=== PATIENT | female | born 1985 | race Caucasian/White ===

== ENCOUNTER 2017-03-09 05:42 | Inpatient (IN) | payer OTHER ==
[~2017-03-09] VITALS: Ht 154.9 cm; Wt 95.3 kg
[2017-03-09] MEDS ORDERED: LACTATED RINGERS 1,000 ML IV SCH (06:14)
[2017-03-09 06:34] LABS: BASOPHILS # (AUTO) 0.1 K/uL (0.00-0.22); BASOPHILS % (AUTO) 0.7 % (0.0-2.0); EOSINOPHILS # (AUTO) 0.1 K/uL (0-0.4); HEMATOCRIT 36.7 % (36-48); HEMOGLOBIN 12.4 g/dL (12.0-16.0); LYMPHOCYTES # (AUTO) 1.7 K/uL (2.5-16.5); LYMPHOCYTES % (AUTO) 19.9 % (20.5-51.1); MEAN CORPUSCULAR HEMOGLOBIN 31 pg (27-31); MEAN CORPUSCULAR HGB CONC 34 g/dL (33-37); MEAN CORPUSCULAR VOLUME 90 fL (80-94); MONOCYTES # (AUTO) 0.5 K/uL (0.8-1.0); MONOCYTES % (AUTO) 5.5 % (1.7-9.3); NEUTROPHILS # (AUTO) 6.2 K/uL (1.8-7.7); NEUTROPHILS % (AUTO) 72.9 % (42.2-75.2); PLATELET COUNT (AUTO) 163 K/uL (140-450); RED BLOOD CELL COUNT(AUTO) 4.07 MIL/uL (4.20-5.40); RED CELL DISTRIBUTION WIDTH 12.4 % (11.6-13.7); WHITE BLOOD COUNT (AUTO) 8.6 K/uL (4.8-10.8)
[2017-03-09] MEDS ORDERED: PREN-546 PO (07:17)
[2017-03-09 07:19] VITALS: BP 113/69
[2017-03-09] MEDS ORDERED: HYDROcodone/APAP 5/325 MG 1 TAB TAB PO PRN (07:20)
[2017-03-09] MEDS ORDERED: MEASLES, MUMPS, AND RUBELLA 1 VIAL SQVAC PRN (07:20)
[2017-03-09] MEDS ORDERED: TEMAZEPAM 15 MG CAP PO PRN (07:20)
[2017-03-09] MEDS ORDERED: METHYLERGONOVINE 0.2 MG/ML AMP IM PRN (07:20)
[2017-03-09] MEDS ORDERED: TRIMETHOBENZAMIDE 200 MG/2 ML SYR IM PRN (07:20)
[2017-03-09] MEDS ORDERED: IBUPROFEN 800 MG TAB PO PRN (07:20)
[2017-03-09 07:21] LABS: PROTHROMBIN TIME 9.5 secs (10.8-13.4)
[2017-03-09 07:22] LABS: ALBUMIN 2.8 g/dL (3.4-5.0); ANION GAP 10.5 (8-16); CARBON DIOXIDE 25.3 mmol/L (21-32); CREATININE 0.7 mg/dL (0.6-1.3); POTASSIUM 3.8 mmol/L (3.5-5.1); TOTAL BILIRUBIN 0.3 mg/dL (0.0-1.0)
[2017-03-09 08:05] LABS: APPEARANCE,URINE CLEAR (CLEAR); BILIRUBIN,URINE NEGATIVE (NEGATIVE); BLOOD, URINE NEGATIVE (NEGATIVE); COLOR,URINE YELLOW (YELLOW); LEUKOCYTE ESTERASE ,URINE NEGATIVE (NEGATIVE); NITRITE, URINE NEGATIVE (NEGATIVE); UGLUCOSE NEGATIVE (NEGATIVE)
[2017-03-09] MEDS ORDERED: BUPIVACAINE-MPF 0.75% 10 ML VIAL INJ ONE (08:25)
[2017-03-09] MEDS ORDERED: OXYTOCIN 10 UNITS/ML VIAL ONE ×2 (08:28→20:31)
[2017-03-09] MEDS ORDERED: MIDAZOLAM 2 MG/2 ML VIAL ONE (08:29)
[2017-03-09] MEDS ORDERED: MORPHINE PRES FREE 10 MG/10 ML AMP IV ONE (08:30)
[2017-03-09] MEDS ORDERED: OXYTOCIN 20 UNITS in LACTATED RINGERS 1,000 ML IV SCH (09:01)
--- NOTE | 2017-03-09 09:04 | NUR ---
PATIENT HAS BEEN SCREENED AND CATEGORIZED LOW NUTRITION RISK. PATIENT WILL BE SEEN WITHIN 7 DAYS OF ADMISSION. 03/15/[address]
[2017-03-09] MEDS ORDERED: NALBUPHINE 10 MG/ML AMP IVP PRN (09:05)
[2017-03-09] MEDS ORDERED: ONDANSETRON 4 MG/2 ML VIAL IVP PRN ×2 (09:05)
[2017-03-09] MEDS ORDERED: diphenhydrAMINE 50 MG/ML VIAL IVP PRN (09:05)
[2017-03-09] MEDS ORDERED: MEPERIDINE 25 MG/ML SYR IVP PRN (09:05)
[2017-03-09] MEDS ORDERED: NALOXONE 0.4 MG/ML VIAL IVP PRN ×3 (09:05)
[2017-03-09] MEDS ORDERED: HYDROmorphone 1 MG/ML AMP IVP PRN (09:05)
[2017-03-09] MEDS: diphenhydrAMINE 50 MG/ML VIAL IVP PRN ×2 (09:26→23:13)
[2017-03-09] MEDS ORDERED: OXYTOCIN 20 UNITS/LR PREMIX 1,000 ML IV ONE (09:30)
[2017-03-09] MEDS ORDERED: diphenhydrAMINE 50 MG/ML VIAL ONE (09:30)
[2017-03-09] MEDS ORDERED: ONDANSETRON 4 MG/2 ML VIAL ONE (09:37)
[2017-03-09] MEDS: OXYTOCIN 20 UNITS in LACTATED RINGERS 1,000 ML IV SCH ×2 (11:59→21:30)
[2017-03-09] MEDS ORDERED: KETOROLAC 30 MG/ML VIAL IM/IVP SCH (12:00)
[2017-03-09] MEDS ORDERED: DOCUSATE SOD/SENNA 50/8.6 MG 1 TAB PO SCH (21:00)
[2017-03-10] MEDS ORDERED: OXYTOCIN 10 UNITS/ML VIAL ONE (06:23)
[2017-03-10 06:47] LABS: BASOPHILS % (AUTO) 0.4 % (0.0-2.0); EOSINOPHILS # (AUTO) 0.1 K/uL (0-0.4); EOSINOPHILS % (AUTO) 0.8 % (0.0-4.0); HEMATOCRIT 33.4 % (36-48); HEMOGLOBIN 11.7 g/dL (12.0-16.0); LYMPHOCYTES # (AUTO) 1.2 K/uL (2.5-16.5); LYMPHOCYTES % (AUTO) 10.1 % (20.5-51.1); MEAN CORPUSCULAR HEMOGLOBIN 32 pg (27-31); MEAN CORPUSCULAR HGB CONC 35 g/dL (33-37); MEAN CORPUSCULAR VOLUME 90 fL (80-94); MONOCYTES # (AUTO) 0.6 K/uL (0.8-1.0); MONOCYTES % (AUTO) 4.6 % (1.7-9.3); NEUTROPHILS # (AUTO) 10.3 K/uL (1.8-7.7); NEUTROPHILS % (AUTO) 84.1 % (42.2-75.2); PLATELET COUNT (AUTO) 144 K/uL (140-450); RED CELL DISTRIBUTION WIDTH 12.6 % (11.6-13.7); WHITE BLOOD COUNT (AUTO) 12.2 K/uL (4.8-10.8)
[2017-03-10] MEDS: SIMETHICONE 80 MG TAB.CHEW PO PRN ×3 (10:12→22:39)
[2017-03-10] MEDS: oxyCODONE/APAP 5/325 MG 1 TAB TAB PO PRN ×2 (10:16→22:38)
[2017-03-11] MEDS ORDERED: SODIUM PHOSPHATE 118 ML ENEM RC PRN (09:05)
[2017-03-11] MEDS ORDERED: IBUP-2217 PO (10:09)
== END 2017-03-11 15:00 | disposition home or self-care (01) | DRG 540 ==
LOC: MLD 05:42 → MFCC 08:52
PROVIDERS: ADMIT Obstetrics & Gynecology; ATTEND Obstetrics & Gynecology
PROC: 10D00Z1 Extraction of Products of Conception, Low, Open Approach (ICD-10-PCS; principal; 2017-03-09 07:30)
PROC: 3E0234Z Introduction of Serum, Toxoid and Vaccine into Muscle, Percutaneous Approach (ICD-10-PCS; 2017-03-10)
DX: O34.211 Maternal care for low transverse scar from previous cesarean delivery (principal); Z68.41 Body mass index [BMI] 40.0-44.9, adult; O99.214 Obesity complicating childbirth; E66.01 Morbid (severe) obesity due to excess calories; Z37.0 Single live birth; Z23 Encounter for immunization; Z3A.39 39 weeks gestation of pregnancy
CPT/HCPCS: 36415; 51702; 80053; 81003; 85025; 85610; 85730; 86886; 86900; 86901; 90715; J0690; J1200; J2250; J2270; J2405; J2590; J3490; J7060; J7120